=== PATIENT | male | born 1945 | race Two or more races ===

== ENCOUNTER 2021-01-06 10:15 | Inpatient (IN) | payer OTHER ==
[~2021-01-06] VITALS: Ht 177.8 cm; Wt 88.5 kg
[2021-01-06] MEDS ORDERED: VASOTEC20 M1 PO (12:04)
[2021-01-06] MEDS ORDERED: PRILOSEC OTC20 MG PO (12:04)
[2021-01-06] MEDS ORDERED: METFORMIN HCL500 M3 PO (12:04)
[2021-01-14] MEDS ORDERED: ETODOLAC500 M1 (08:59)
[2021-01-14] MEDS ORDERED: FEROSUL325 MG (08:59)
[2021-01-14] MEDS ORDERED: FOLIC ACID1 MG (08:59)
[2021-01-14] MEDS ORDERED: DONEPEZIL HCL10 MG (08:59)
[2021-01-14] MEDS ORDERED: GABAPENTIN600 MG (09:00)
[2021-01-14] MEDS ORDERED: OMEPRAZOLE20 MG (09:00)
[2021-01-14] MEDS ORDERED: GLIPIZIDE5 MG (09:00)
[2021-01-14] MEDS ORDERED: NYSTATIN-TRIAMC15 GM (09:00)
[2021-01-14] MEDS ORDERED: RESTORIL30 MG (09:00)
[2021-01-14] MEDS ORDERED: FAMOTIDINE40 MG (09:00)
[2021-01-14] MEDS ORDERED: GLYBURIDE5 MG (09:01)
[2021-01-14] MEDS ORDERED: PERCOCET 5-3251 EACH PO (14:04)
[2021-01-14] MEDS ORDERED: NEURONTIN800 MG PO (14:04)
[2021-01-14] MEDS ORDERED: ZOFRAN8 MG PO (14:04)
[2021-01-14] MEDS ORDERED: DIAZEPAM5 MG PO (14:04)
[2021-01-14] MEDS ORDERED: AMOX-CLAV 875-1 EAC1 PO (14:04)
[2021-01-14] MEDS ORDERED: MEDROLPACK PO (14:04)
[2021-01-14] MEDS ORDERED: COLACE100 MG PO (14:04)
== END 2021-01-15 12:52 | disposition home or self-care (01) | DRG 458 ==
LOC: SURH 01-13 10:15 → O/R 01-14 05:25 → SURH 01-14 07:00 → O/R 01-14 10:40 → SURG 01-14 23:03
PROVIDERS: ADMIT Orthopaedic Surgery Orthopaedic Surgery of the Spine; ATTEND Orthopaedic Surgery Orthopaedic Surgery of the Spine
PROC: 07DR0ZZ Extraction of Iliac Bone Marrow, Open Approach (ICD-10-PCS; 2021-01-14)
PROC: 3E0U0GB Introduction of Recombinant Bone Morphogenetic Protein into Joints, Open Approach (ICD-10-PCS; 2021-01-14)
PROC: 0SG10A0 Fusion of 2 or more Lumbar Vertebral Joints with Interbody Fusion Device, Anterior Approach, Anterior Column, Open Approach (ICD-10-PCS; principal; 2021-01-14 07:00)
DX: M43.16 Spondylolisthesis, lumbar region (principal); M41.56 Other secondary scoliosis, lumbar region; M48.062 Spinal stenosis, lumbar region with neurogenic claudication

== ENCOUNTER → 2021-01-14 06:15 | Outpatient (CLI) | payer OTHER ==
[~2021-01-14 06:15] MED LIST: AMOX-CLAV 875-1 EAC1 PO; COLACE100 MG PO; DIAZEPAM5 MG PO; DONEPEZIL HCL10 MG; ETODOLAC500 M1; FAMOTIDINE40 MG; FEROSUL325 MG; FOLIC ACID1 MG; GABAPENTIN600 MG; GLIPIZIDE5 MG; GLYBURIDE5 MG; MEDROLPACK PO; METFORMIN HCL500 M3 PO; NEURONTIN800 MG PO; NYSTATIN-TRIAMC15 GM; OMEPRAZOLE20 MG; PERCOCET 5-3251 EACH PO; PRILOSEC OTC20 MG PO; RESTORIL30 MG; VASOTEC20 M1 PO; ZOFRAN8 MG PO
== END | disposition home or self-care (01) ==
LOC: LAB 06:15
PROVIDERS: ATTEND Orthopaedic Surgery Orthopaedic Surgery of the Spine
DX: U07.1 COVID-19 (principal); Z03.818 Encounter for observation for suspected exposure to other biological agents ruled out; Z20.828 Contact with and (suspected) exposure to other viral communicable diseases